=== PATIENT | female | born 1990 | race Caucasian/White ===

== ENCOUNTER 2017-11-28 14:06 | Emergency (ER) | payer OTHER, MEDICAID ==
[2017-11-28] MEDS: ACETAMINOPHEN 500 MG TAB PO (14:46)
[2017-11-28] MEDS: IBUPROFEN 600 MG TAB PO (14:46)
== END 2017-11-28 15:23 | disposition home or self-care (01) ==
LOC: FTE 14:06
DX: N39.0 Urinary tract infection, site not specified (principal)
CPT/HCPCS: 99283; Z7502